=== PATIENT | male | born 1970 | race Caucasian/White ===

== ENCOUNTER 2017-06-09 07:51 | Emergency (ER) | payer OTHER ==
[~2017-06-09] VITALS: Ht 167.6 cm; Wt 91.6 kg
[2017-06-09 08:03] VITALS: BP 127/73
--- NOTE | 2017-06-09 08:12 | NUR ---
TO WAITING ROOM, NO AVAIL. BED AT THIS TIME. NO DISTRESS
--- NOTE | 2017-06-09 09:09 | NUR ---
Patient ambulated to bed 12 at this time.
--- NOTE | 2017-06-09 09:15 | NUR ---
46/M BIB SELF C/O LEG PAIN & BACK PAIN, COUGH , FLU LIKE SYMPTOMS X3 DAYS. DENIES N/V/D; SKIN IS PINK/WARM/DRY; AAOX4 WITH EVEN AND STEADY GAIT; LUNGS CLEAR BL; HR EVEN AND REGULAR; PATIENT STATES PAIN OF 9/10 AT THIS TIME; VSS; PATIENT POSITIONED FOR COMFORT; HOB ELEVATED; BEDRAILS UP X2; BED DOWN. ER MD MADE AWARE OF PT STATUS.
[2017-06-09] MEDS ORDERED: diphenhydrAMINE 50 MG/ML VIAL IM/IVP ONE (10:20)
[2017-06-09] MEDS ORDERED: HYDROmorphone PFS 2 MG/ML SYR IM/IVP ONE (10:20)
[2017-06-09] MEDS ORDERED: NACL 0.9% 1,000 ML IV ONE (10:20)
[2017-06-09] MEDS ORDERED: AMLO2.5T PO (10:30)
[2017-06-09] MEDS ORDERED: GEMF600T5 PO (10:30)
[2017-06-09] MEDS ORDERED: INSU100S22 SUBQ (10:30)
[2017-06-09] MEDS ORDERED: CINN500C4 PO (10:30)
[2017-06-09] MEDS ORDERED: PROG1 PO (10:30)
[2017-06-09] MEDS ORDERED: METF500T PO (10:30)
[2017-06-09] MEDS ORDERED: VAS10 PO (10:30)
[2017-06-09] MEDS ORDERED: [UNRECOGNIZED DRUG - CODE] PO (10:30)
[2017-06-09] MEDS ORDERED: OMEP20TC12 PO (10:30)
[2017-06-09] MEDS ORDERED: EPIV150 PO (10:30)
[2017-06-09] MEDS ORDERED: FISH10005 PO (10:30)
[2017-06-09] MEDS ORDERED: MAGN200T5 PO (10:30)
--- NOTE | 2017-06-09 10:47 | NUR ---
US AT BEDSIDE.
--- NOTE | 2017-06-09 10:47 | NUR ---
Anmol moore in ED - 06/09/17 at 1109 by MED1 X RAY AT BEDSIDE.
[2017-06-09 10:57] LABS: BASOPHILS # (AUTO) 0.1 K/uL (0.00-0.22); BASOPHILS % (AUTO) 3.2 % (0.0-2.0); EOSINOPHILS % (AUTO) 0.1 % (0.0-4.0); HEMATOCRIT 41.7 % (36-52); HEMOGLOBIN 14.4 g/dL (12.0-18.0); LYMPHOCYTES # (AUTO) 0.7 K/uL (2.0-11.5); LYMPHOCYTES % (AUTO) 21.5 % (20.5-51.1); MEAN CORPUSCULAR HEMOGLOBIN 33 pg (27-31); MEAN CORPUSCULAR HGB CONC 34 g/dL (33-37); MEAN CORPUSCULAR VOLUME 95 fL (80-94); MONOCYTES # (AUTO) 0.4 K/uL (0.8-1.0); MONOCYTES % (AUTO) 10.9 % (1.7-9.3); NEUTROPHILS % (AUTO) 64.3 % (42.2-75.2); PLATELET COUNT (AUTO) 88 K/uL (140-450); RED BLOOD CELL COUNT(AUTO) 4.41 MIL/uL (4.20-6.10); WHITE BLOOD COUNT (AUTO) 3.2 K/uL (4.8-10.8)
[2017-06-09 11:01] LABS: PROTHROMBIN TIME 10.8 secs (10.8-13.4)
[2017-06-09 11:48] LABS: POTASSIUM 4.5 mmol/L (3.5-5.1)
[2017-06-09 11:49] LABS: ALBUMIN 3.8 g/dL (3.4-5.0); ANION GAP 16.1 (8-16); CARBON DIOXIDE 27.4 mmol/L (21-32); CREATININE 1.4 mg/dL (0.7-1.3); TOTAL BILIRUBIN 0.8 mg/dL (0.0-1.0)
--- NOTE | 2017-06-09 12:09 | NUR ---
Patient appears to be resting comfortably in bed. BP 129/85,P 85, PULSE OX 95% VIA OXYGEN 2L/M ; NC , Respirations even and unlabored.WILL CONTINUE TO MONITOR.
[2017-06-09 12:40] LABS: APPEARANCE,URINE HAZY (CLEAR); BILIRUBIN,URINE 1+ (NEGATIVE); BLOOD, URINE 1+ (NEGATIVE); LEUKOCYTE ESTERASE ,URINE NEGATIVE (NEGATIVE); NITRITE, URINE NEGATIVE (NEGATIVE); UGLUCOSE 1+ (NEGATIVE)
[2017-06-09 12:51] LABS: COLOR,URINE ORANGE (YELLOW)
[2017-06-09 12:55] LABS: RBC,URINE 0-5 (RARE) /HPF (0-5); WBC,URINE 0-5 (RARE) /HPF (0-5)
--- NOTE | 2017-06-09 13:15 | NUR ---
Patient appears to be resting comfortably in bed. Vital Signs within normal limits. Respirations even and unlabored.WILL CONTINUE TO MONITOR.
[2017-06-09 13:58] VITALS: BP 117/87
== END 2017-06-09 13:58 | disposition home or self-care (01) ==
LOC: MED 07:51
DX: B34.9 Viral infection, unspecified (principal); M79.1 Myalgia; E88.81 Metabolic syndrome and other insulin resistance; E11.9 Type 2 diabetes mellitus without complications; I10 Essential (primary) hypertension; E78.5 Hyperlipidemia, unspecified; E66.8 Other obesity; Z94.4 Liver transplant status; Z79.4 Long term (current) use of insulin; Z79.899 Other long term (current) drug therapy
CPT/HCPCS: 36415; 36600; 71010; 80053; 81001; 82550; 82553; 82803; 82948; 83605; 83874; 83880; 84484; 85025; 85610; 85730; 87040; 87086; 93005; 93976; 96361; 96374; 96375; 99285; J1170; J1200; J7030; Q0092

== ENCOUNTER 2022-11-25 18:11 | Emergency (ER) | payer OTHER ==
[~2022-11-25] VITALS: Ht 167.6 cm; Wt 90.7 kg
[~2022-11-25 18:11] MED LIST: AMLO2.5T PO; CINN500C4 PO; ENAL-197 PO; EPIV150 PO; FISH10005 PO; GEMF600T5 PO; INSU100S22 SUBQ; MAGN200T5 PO; METF-346 PO; OMEP-278 PO; TACR1CAP17 PO; [UNRECOGNIZED DRUG - CODE] PO
[2022-11-25 18:42] VITALS: BP 131/58
--- NOTE | 2022-11-25 19:26 | NUR ---
MD Davilas examining pt at this time.
[2022-11-25 19:56] LABS: BASOPHILS % (AUTO) 0.4 % (0.0-2.0); EOSINOPHILS # (AUTO) 0.1 K/uL (0-0.4); EOSINOPHILS % (AUTO) 2.3 % (0.0-4.0); HEMATOCRIT 22.2 % (36-52); HEMOGLOBIN 7.5 g/dL (12.0-18.0); LYMPHOCYTES # (AUTO) 1.2 K/uL (2.0-11.5); LYMPHOCYTES % (AUTO) 34.2 % (20.5-51.1); MEAN CORPUSCULAR HEMOGLOBIN 30 pg (27-31); MEAN CORPUSCULAR HGB CONC 34 g/dL (33-37); MEAN CORPUSCULAR VOLUME 89.4 fL (80-94); MONOCYTES # (AUTO) 0.3 K/uL (0.8-1.0); MONOCYTES % (AUTO) 9.8 % (1.7-9.3); NEUTROPHILS # (AUTO) 1.8 K/uL (1.8-7.7); NEUTROPHILS % (AUTO) 53.3 % (42.2-75.2); PLATELET COUNT (AUTO) 159 K/uL (140-450); RED BLOOD CELL COUNT(AUTO) 2.49 MIL/uL (4.20-6.10); WHITE BLOOD COUNT (AUTO) 3.4 K/uL (4.8-10.8)
[2022-11-25 20:19] LABS: ALBUMIN 3.1 g/dL (3.4-5.0); ANION GAP 12.7 (8-16); ASPARTATE AMINOTRANSFERASE 30 U/L (15-37); CARBON DIOXIDE 27.3 mmol/L (21-32); CHLORIDE 107 mmol/L (98-107); CREATININE 1.8 mg/dL (0.6-1.3); GFR ARICAN-AMERICAN 51 mL/min (>90); GLUCOSE 227 mg/dL (74-106); SODIUM SERUM 143 mmol/L (136-145); TOTAL BILIRUBIN 0.2 mg/dL (0.0-1.0); UREA NITROGEN, BLOOD 27 mg/dL (7-18)
[2022-11-25] MEDS ORDERED: ACETAMINOPHEN EXTRA STRENGTH 500 MG TAB PO ONE (21:00)
[2022-11-25] MEDS ORDERED: METOCLOPRAMIDE 10 MG TAB PO ONE (21:00)
[2022-11-25] MEDS ORDERED: FLONAS NS (21:13)
[2022-11-25] MEDS ORDERED: METOCLOPRAMIDE 10 MG TAB ONE (22:40)
[2022-11-25] MEDS ORDERED: ACETAMINOPHEN EXTRA STRENGTH 500 MG TAB ONE (22:41)
[2022-11-25 22:47] VITALS: BP 129/74
== END 2022-11-25 22:48 | disposition home or self-care (01) ==
LOC: MED 18:11
DX: J06.9 Acute upper respiratory infection, unspecified (principal); D64.9 Anemia, unspecified; R51.9 Headache, unspecified; N28.9 Disorder of kidney and ureter, unspecified; E11.22 Type 2 diabetes mellitus with diabetic chronic kidney disease; I12.9 Hypertensive chronic kidney disease with stage 1 through stage 4 chronic kidney disease, or unspecified chronic kidney disease; N18.9 Chronic kidney disease, unspecified; E78.5 Hyperlipidemia, unspecified; Z94.4 Liver transplant status; Z79.4 Long term (current) use of insulin; Z79.899 Other long term (current) drug therapy
CPT/HCPCS: 36415; 70450; 71045; 80053; 82550; 84484; 85025; 99284; J8597; Q0163